=== PATIENT | male | born 1940 ===

== ENCOUNTER 2022-04-23 19:29 | Emergency (ER) | payer SELFPAY ==
[2022-04-23 19:51] VITALS: BP 124/73; PULSE 66; RESP 18; TEMP 36.1; O2SAT 96; BMI 38.5
== END 2022-04-23 23:36 | disposition left against medical advice (07) ==
PROVIDERS: Emergency Provider Emergency Medicine
DX: M25.572 Pain in left ankle and joints of left foot (principal)
CPT/HCPCS: 99281